=== PATIENT | male | born 1990 | race Caucasian/White ===

== ENCOUNTER → 2016-08-25 | Outpatient (CLI) | payer BC | LOC: FIMAGING 08:22 | PROVIDERS: ATTEND Registered Nurse | DX: M20.11 Hallux valgus (acquired), right foot (principal); M77.32 Calcaneal spur, left foot; M77.31 Calcaneal spur, right foot ==

== ENCOUNTER → 2018-06-06 | Outpatient (CLI) | payer MEDICAID | LOC: FIMAGING 14:51 → EDSTATUS 14:52 | PROVIDERS: ATTEND Family Medicine | DX: M53.3 Sacrococcygeal disorders, not elsewhere classified (principal) ==